=== PATIENT | male | born 1960 | race Caucasian/White ===

== ENCOUNTER → 2020-07-13 11:40 | Outpatient (BNVA) | payer MEDICARE, OTHER, SELFPAY | PROVIDERS: Family Provider Family Medicine; PCP Family Medicine; Visit Provider Internal Medicine Cardiovascular Disease | DX: I10 Essential (primary) hypertension (principal); I25.10 Atherosclerotic heart disease of native coronary artery without angina pectoris; I25.5 Ischemic cardiomyopathy; Z95.810 Presence of automatic (implantable) cardiac defibrillator | CPT/HCPCS: 80048; 83880 ==

== ENCOUNTER 2020-11-01 12:26 | Outpatient (CLI) | payer MEDICARE, OTHER, SELFPAY ==
--- NOTE | 2020-11-01 12:45 | USCV_ITS ---
Sidney Lu Jr Age: 59 Gender: M : 1960 Exam Date: 11/01/2020 12:46 Ordering Phys: Rosalia Alcaraz MD ([email or web address]) Technologist: Merari Kilgore Exam Location: [facility] [place] Indication: POST FL. BP: / HR: 56 Rhythm: Sinus Technical Quality: Adequate MEASUREMENTS (Male / Female) Normal Values 2D ECHO LV Diastolic Diameter PLAX 7.1 cm 4.2 - 5.9 / 3.9 - 5.3 cm LV Systolic Diameter PLAX 5.4 cm IVS Diastolic Thickness 1.5 cm 0.6 - 1.0 / 0.6 - 0.9 cm IVS Systolic Thickness 1.7 cm LVPW Diastolic Thickness 1.6 cm 0.6 - 1.0 / 0.6 - 0.9 cm LVPW Systolic Thickness 1.9 cm LVOT Diameter 2.1 cm LV Ejection Fraction 2D Teich 45.9 % LV Ejection Fraction MOD 2C 36.9 % LV Ejection Fraction 2C AL 36.9 % LA Diameter 4.3 cm LA Width 3.1 cm LA Height 4.8 cm RA Width 4.0 cm RA Height 3.6 cm Aorta at Sinotubular Diameter 3.6 cm M-MODE LV Diastolic Diameter MM 8.4 cm 4.2 - 5.9 / 3.9 - 5.3 cm LV Systolic Diameter MM 7.8 cm LV Ejection Fraction MM Teich 14.3 % IVS Diastolic Thickness MM 1.0 cm 0.6 - 1.0 / 0.6 - 0.9 cm IVS Systolic Thickness MM 1.1 cm LVPW Diastolic Thickness MM 1.8 cm 0.6 - 1.0 / 0.6 - 0.9 cm LVPW Systolic Thickness MM 2.0 cm RV Diastolic Diameter MM 0.7 cm Aortic Annulus Diameter 3.8 cm LA Ao Ratio MM 1.3 DOPPLER AV Peak Velocity 110.0 cm/s LVOT Peak Velocity 49.0 cm/s AV Area Cont Eq vti 1.5 cm squared AV Area Cont Eq pk 1.5 cm squared MV Area PHT 6.9 cm squared Mitral E to A Ratio 0.6 MV E' Velocity 39.5 cm/s Mitral E to MV E' Ratio 12.4 Mitral E to LV E' Lateral Ratio 10.7 Mitral E to LV E' Septal Ratio 15.0 TR Peak Velocity 120.1 cm/s TR Peak Gradient 5.8 mmHg TR Mean Velocity 101.0 cm/s TR Mean Gradient 4.3 mmHg TR Velocity Time Integral 42.9 cm TV Peak E Velocity 50.0 cm/s PV Peak Velocity 68.0 cm/s RV Acceleration Time 0.1 s RV Ejection Time 0.4 s RV AcT/ET 0.3 FINDINGS Left Ventricle Moderately dilated LV cavity. Severe diffuse hypokinesia of the septum, anteroseptum, inferior wall and the LV apex. Ejection fraction around 15-20 % Right Ventricle The right ventricle is normal in size and function. Right Atrium The right atrium is normal in size. Left Atrium Mildly increased left atrial size. Mitral Valve Mild mitral valve regurgitation. Aortic Valve Trace aortic valve regurgitation. Tricuspid Valve No gross abnormalities noted Pulmonic Valve No gross abnormalities noted Pericardium No pericardial effusion. Aorta Normal ascending aorta dimension. CONCLUSIONS Moderately dilated LV cavity. Multiple wall motion normalities with severely depressed left ventricular ejection fraction of 15 to 20%. Mildly increased left atrial size. Mild mitral valve regurgitation. Trace aortic valve regurgitation. There is no pericardial effusion. There are no intracardiac masses. Compared to the study from 07/28/2019, there may not be a significant change Dr Rosalia Alcaraz MD [facility] (Electronically Signed) Final Date: 02 November 2020 09:32 S
== END 2020-11-01 12:27 | disposition home or self-care (01) ==
LOC: US 12:27
PROVIDERS: PCP Family Medicine; Visit Provider Internal Medicine Cardiovascular Disease
DX: R07.89 Other chest pain (principal); I25.2 Old myocardial infarction; I08.0 Rheumatic disorders of both mitral and aortic valves
CPT/HCPCS: 93306

== ENCOUNTER → 2021-08-14 14:58 | Outpatient (BNVA) | payer MEDICARE, OTHER, SELFPAY | PROVIDERS: PCP Family Medicine; Visit Provider Internal Medicine Cardiovascular Disease | DX: R07.89 Other chest pain (principal); I25.5 Ischemic cardiomyopathy; R06.02 Shortness of breath; I50.33 Acute on chronic diastolic (congestive) heart failure; Z95.810 Presence of automatic (implantable) cardiac defibrillator; I25.10 Atherosclerotic heart disease of native coronary artery without angina pectoris; I11.0 Hypertensive heart disease with heart failure; R22.2 Localized swelling, mass and lump, trunk; Z87.891 Personal history of nicotine dependence | CPT/HCPCS: 80048; 83880 ==

== ENCOUNTER → 2021-09-28 11:45 | Outpatient (BNVA) | payer MEDICARE, OTHER, SELFPAY | PROVIDERS: PCP Family Medicine; Referring Provider Family Medicine; Visit Provider Internal Medicine Critical Care Medicine | DX: R91.1 Solitary pulmonary nodule (principal); Z20.822 Contact with and (suspected) exposure to COVID-19 | CPT/HCPCS: 87635 ==

== ENCOUNTER 2021-11-02 09:47 | Outpatient (CLI) | payer MEDICARE, OTHER, SELFPAY ==
--- NOTE | 2021-11-02 11:00 | US_ITS ---
WS: [id number] ULTRASOUND GUIDED BIOPSY LEFT SUPRACLAVICULAR LYMPH NODE. HISTORY: U/S guided FNA of Left Supraclavicular Lymph Node Procedure, risks, and complications are explained to the patient. Consent was obtained. Skin is clean sed with ChloraPrep and anesthetized with 1% buffered lidocaine. There are numerous abnormal lymph nodes in the LEFT supraclavicular location. Abnormal lymph node wit h loss of the normal fatty hilum and rounded configuration in the LEFT supraclavicular area will be t argeted. This lymph node was positive on recent PET/CT. 5 core biopsies are performed with a 20-gauge Temno needle. Specimens are placed and normal saline as requested by pathology. No complications were encountered during the examination. Patient will be ob served for 15 minutes postprocedure. Specimen was delivered to pathology. US/US biopsy lymph node [id number] IMPRESSION: Uncomplicated core biopsy abnormal LEFT supraclavicular lymph node. Multiple co re biopsies were obtained.
[2021-11-13 09:06] LABS: PD-L1 (Clone 22C3) by IHC BBPL See Report
== END 2021-11-02 09:48 | disposition home or self-care (01) ==
LOC: RAD 09:51
PROVIDERS: PCP Family Medicine; Visit Provider Internal Medicine Critical Care Medicine
DX: R59.0 Localized enlarged lymph nodes (principal); R91.1 Solitary pulmonary nodule; C34.92 Malignant neoplasm of unspecified part of left bronchus or lung
CPT/HCPCS: 38505; 76942; 88305; 88342

== ENCOUNTER 2021-11-09 12:04 | Outpatient (CLI) | payer MEDICARE, OTHER, SELFPAY ==
--- NOTE | 2021-11-09 17:13 | ONC CON_ITS ---
Dr. Yusuf New Patient Note Patient: Sidney Lu Jr Unit #: [id number]: 1960 Dicatated By: Zohreh Yusuf M.D.Date of Visit: Nov 09, 2021 Onc MED New Patient/Consult Referring Physician: Satish Wakefield History of Present Illness: Mr. Sidney Lu, is a 61-year-old gentleman with bilateral neck fullness, as per patient about 4 months ago he felt some fullness in his left neck and was evaluated by PMD, chest x-ray was done, which showed pulmonary nodules he was given a course of antibiotic without much help subsequently he underwent CT scan of chest in August 2021 which showed spiculated pulmonary nodule measuring 2 x 1.7 cm in the right apical area. Also found to have central necrotic pretracheal lymph node measuring 4.6 x 4.2 cm and also had right hilar, subcarinal, prevascular lymphadenopathy. Subsequently underwent CT PET scan on September 30, 2021 which showed right apical solid nodule measuring 2.2 x 1.9 cm with SUV of 8 and no additional pulmonary nodules seen. Right hilar mass invading mediastinum measuring 6.9 x 4.2 cm SUV of 10.5. Extensive other malignant mediastinal lymph nodes are present in the prevascular, right and left pretracheal, superior mediastinal and subcarinal territories. Index subcarinal lymph node measuring 4.6 x 2.5 cm with SUV of 10.6. Outside thorax, FDG positive nodes are present in the bilateral cervical level 4, supraclavicular, infraclavicular/retropectoral and left posterior triangle level 5 territory. Index left supraclavicular lymph node mild 1.8 x 2.3 cm with SUV of 11.1. Unifocal osseous metastatic disease is present in left sacral area with SUV 5.1. Patient has history of coronary artery disease status post heart attack, ischemic cardiomyopathy and now has AICD, as per patient his ejection fraction is around 15% and Dr. Alcaraz is following him. Because of cardiac condition, as per patient bronchoscopy was not considered, patient was sent for CT-guided FNA of left supraclavicular lymph node which was done on November 02, 2021 and the prelim report shows metastatic carcinoma, favor non-small cell carcinoma immunohistochemistry pending Patient has history of smoking, 2 packs/day for 30 years before quitting in 2012. Consume alcohol occasionally. Patient denies any headaches, blurred vision or double vision, denies any dysphagia but for the last month or so he cannot live flat on his back because of shortness of breath and also complaining of right shoulder pain, patient has history of left shoulder bursitis which was treated with hydrocortisone injection. Patient denies any trauma to right shoulder or upper body. Denies any numbness or weakness in the right arm or hand. Denies any hemoptysis or hematemesis, denies any weight loss, denies any night sweats denies any recurrent fever. Denies any abdominal pain, denies any jaundice. Denies any melena or hematochezia. Past Medical History: Mr. Tabitha Cutler's medical history consists of cardiomyopathy, coronary artery disease, high degree atrioventricular block, and hypertension. Past Surgical History: Mr. Tabitha Cutler's surgical/procedural history consists of automatic cardioverter/defibrillator, cardiac catheter, orchiectomy, shoulder surgery, tonsillectomy, Covid vaccine #2 Moderna in 2020, and Covid vaccine #1 Moderna in 2020. Medications: Aspirin 1 Tablet (of 81 mg) Tablet, enteric coated Oral daily, Carvedilol 1 Tablet (of 12.5 mg) Oral b.i.d., Ezetimibe 1 Tablet (of 10 mg) Oral daily, Famotidine 1 Tablet (of 20 mg) Oral b.i.d., fish oil 1 Capsule Oral daily, Folic Acid 1 Tablet (of 400 mcg) Oral b.i.d., Furosemide 1 Tablet (of 20 mg) Oral every am, Multi Vitamin 1 Tablet Oral daily, oxyCODONE-Acetaminophen 1 Tablet (of 7.5-325 mg) Oral q 8 hours PRN, Potassium Chloride ER 1 Capsule (of 10 meq) Capsule, controlled release Oral daily, Sacubitril-Valsartan 1 Tablet (of 97-103 mg) Oral b.i.d., Simvastatin 1 Tablet (of 40 mg) Oral daily, Spironolactone 1 Tablet (of 25 mg) Oral daily, TEGretol 1 Tablet (of 200 mg) Oral b.i.d. Allergies: No Known Allergies. Social History: Mr. Tabitha Cutler is . Mr. Tabitha Cutler quit smoking 8 years ago but had smoked 2.0 packs/day for 30 years. He drinks occasionally. Family History: There is no documented family history. Review Of Symptoms: Review of Systems is not available for this patient. Vital Signs: Performed on Nov 09, 2021 12:55: 9, 8, 29.70, 2.12 sq.m, 70 in, 95 % (LOW), 93 /min, 18 /min, 115/75 mm(hg), 97.8 F (LOW), and 207.0 lbs (HIGH). Performance Status: 0 - Fully active, able to carry on all predisease activities without restrictions. (ECOG) Physical Examination: ENMT - No mouth sores, no thrush, no jaundice, Bilateral supraclavicular/cervical lymphadenopathy, Respiratory - Lungs are clear to auscultation, Cardiovascular - Regular rate and rhythm of heart, Abdomen - Soft, bowel sounds present, Extremities - No visible edema, no right shoulder swelling or overlying skin changes, no focal tenderness. Lab/Imaging: Most recent lab results are not available for this patient. 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 Oliveira, as patient's PET scan has shown extensive cervical lymphadenopathy, supraclavicular lymphadenopathy, it is beyond conventional radiation field so upfront systemic therapy is under consideration, , Other concern is left sacral lesion, which could be solitary osseous metastatic disease, will consider CT-guided biopsy once final pathology report is available and if it confirm adenosquamous histology,We will check PD-L1 status, As an mixed histology, reliability of molecular profiling will be questionable . Because of poor ejection fraction, not many chemotherapy options are available but if his PD-L1 status negative, may consider weekly vinorelbine. In the meantime we will also request for Port-A-Cath placement. Patient return to clinic in 1 week with CBC CMP and hopefully will have final pathology report available at that time. Signed By: Zohreh Yusuf M.D. <<Signature on File>>
== END 2021-11-09 12:05 | disposition home or self-care (01) ==
PROVIDERS: PCP Family Medicine; Visit Provider Internal Medicine Hematology & Oncology
DX: C34.90 Malignant neoplasm of unspecified part of unspecified bronchus or lung (principal); I25.5 Ischemic cardiomyopathy; J44.9 Chronic obstructive pulmonary disease, unspecified; R91.1 Solitary pulmonary nodule; R07.89 Other chest pain; Z95.810 Presence of automatic (implantable) cardiac defibrillator; I42.9 Cardiomyopathy, unspecified; I25.10 Atherosclerotic heart disease of native coronary artery without angina pectoris; I10 Essential (primary) hypertension; Z87.891 Personal history of nicotine dependence
CPT/HCPCS: 99204

== ENCOUNTER 2021-11-16 06:37 | Outpatient (CLI) | payer MEDICARE, OTHER, SELFPAY ==
[2021-11-16 09:03] LABS: Basophils % 0.7 %; Eosinophils # 0.2 10^3/uL (0.0-0.8); Eosinophils % 2.8 %; Hemoglobin 14.1 g/dL (11.7-16.6); Lymphocytes # 0.7 10^3/uL (0.8-4.8); Mean Corpuscular Volume 90.3 fl (80-94); Mean Platelet Volume 10.2 fL (7.4-10.4); Monocytes # 0.6 10^3/uL (0.2-0.9); Monocytes % 9.7 %; Neutrophils # 4.54 10^3/uL (1.8-7.7); Neutrophils % 75.5 %; Nucleated Red Blood Cells % 0 %; Platelet Count 329 10^3/cmm (130-400); Red Blood Count 4.87 10^6/uL (4.1-5.3); Red Cell Distribution Width 13.1 % (12.1-15.1)
[2021-11-16 09:23] LABS: Alanine Aminotransferase 20 U/L (0-41); Albumin Level 4.3 g/dL (3.5-5.2); Alkaline Phosphatase 88 IU/L (40-130); Blood Urea Nitrogen 17 mg/dL (8-23); Calcium 9.3 mg/dL (8.5-10.5); Carbon Dioxide 22 mmol/L (22-29); Chloride 100 mmol/L (98-107); Globulin 2.8 g/dL (1.3-4.6); Glomerular Filtration Rate 97.6 mL/min (90-130); Glucose 108 mg/dL (65-115); Osmolality Calculated 282 mOsm/kg (285-295); Sodium 135 mmol/L (136-145); Total Bilirubin 0.3 mg/dL (0.15-1.2); Total Protein 7.1 g/dL (6.6-8.7)
[2021-11-16 09:29] LABS: Anion Gap 17.4 (5-19); Aspartate Amino Transferase 20 U/L (0-40); Potassium 4.4 mmol/L (3.5-5.1)
--- NOTE | 2021-11-16 15:42 | ONC FU_ITS ---
Dr. Yusuf follow up note Patient: Sidney Lu Jr Unit #: [id number]: 1960 Dicatated By: Zohreh Yusuf M.D.Date of Visit:Nov 16, 2021 Onc Med Follow-up/Prog Note History of Present Illness: Mr. Sidney Lu, is a 61-year-old gentleman with bilateral neck fullness, as per patient about 4 months ago he felt some fullness in his left neck and was evaluated by PMD, chest x-ray was done, which showed pulmonary nodules he was given a course of antibiotic without much help subsequently he underwent CT scan of chest in August 2021 which showed spiculated pulmonary nodule measuring 2 x 1.7 cm in the right apical area. Also found to have central necrotic pretracheal lymph node measuring 4.6 x 4.2 cm and also had right hilar, subcarinal, prevascular lymphadenopathy. Subsequently underwent CT PET scan on September 30, 2021 which showed right apical solid nodule measuring 2.2 x 1.9 cm with SUV of 8 and no additional pulmonary nodules seen. Right hilar mass invading mediastinum measuring 6.9 x 4.2 cm SUV of 10.5. Extensive other malignant mediastinal lymph nodes are present in the prevascular, right and left pretracheal, superior mediastinal and subcarinal territories. Index subcarinal lymph node measuring 4.6 x 2.5 cm with SUV of 10.6. Outside thorax, FDG positive nodes are present in the bilateral cervical level 4, supraclavicular, infraclavicular/retropectoral and left posterior triangle level 5 territory. Index left supraclavicular lymph node mild 1.8 x 2.3 cm with SUV of 11.1. Unifocal osseous metastatic disease is present in left sacral area with SUV 5.1. Patient has history of coronary artery disease status post heart attack, ischemic cardiomyopathy and now has AICD, as per patient his ejection fraction is around 15% and Dr. Alcaraz is following him. 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 Consume alcohol occasionally. Patient denies any headaches, blurred vision or double vision, denies any dysphagia but for the last month or so he cannot live flat on his back because of shortness of breath and also complaining of right shoulder pain, patient has history of left shoulder bursitis which was treated with hydrocortisone injection. Patient denies any trauma to right shoulder or upper body. Denies any numbness or weakness in the right arm or hand. Denies any hemoptysis or hematemesis, denies any weight loss, denies any night sweats denies any recurrent fever. Denies any abdominal pain, denies any jaundice. Denies any melena or hematochezia. Came for follow-up, denies any specific complaint except chronic dyspnea on exertion due to low ejection fraction, no dysphagia, no choking sensation, no nausea or vomiting, no diarrhea constipation, no headaches blurred vision or double vision, no new bony pains Medications: Aspirin 1 Tablet (of 81 mg) Tablet, enteric coated Oral daily, Carvedilol 1 Tablet (of 12.5 mg) Oral b.i.d., Ezetimibe 1 Tablet (of 10 mg) Oral daily, Famotidine 1 Tablet (of 20 mg) Oral b.i.d., fish oil 1 Capsule Oral daily, Folic Acid 1 Tablet (of 400 mcg) Oral b.i.d., Furosemide 1 Tablet (of 20 mg) Oral every am, Multi Vitamin 1 Tablet Oral daily, oxyCODONE-Acetaminophen 1 Tablet (of 7.5-325 mg) Oral q 8 hours PRN, Potassium Chloride ER 1 Capsule (of 10 meq) Capsule, controlled release Oral daily, Sacubitril-Valsartan 1 Tablet (of 97-103 mg) Oral b.i.d., Simvastatin 1 Tablet (of 40 mg) Oral daily, Spironolactone 1 Tablet (of 25 mg) Oral daily, TEGretol 1 Tablet (of 200 mg) Oral b.i.d. Allergies: No Known Allergies. Review of Systems: Review of Systems is not available for this patient. Vital Signs: Performed on Nov 16, 2021 12:20 Height - 70.00 in Weight - 207.2 lbs (HIGH) BSA - 2.12 sq.m BMI - 29.73 Temperature - 97.9 F (LOW) Pulse - 89 /min Respiration - 20 /min BP - 126/83 mm(hg) O2 Sat - 92 % (LOW) Pain - 8 Fatigue - 8 Performance Status: 0 - Fully active, able to carry on all predisease activities without restrictions. (ECOG) Physical Examination: ENMT - No mouth sores, no thrush, no jaundice, Bilateral cervical/supraclavicular lymphadenopathy, Respiratory - Lungs are clear to auscultation, Cardiovascular - Regular rate and rhythm of heart, Abdomen - Soft, bowel sounds present, Extremities - No visible edema. Lab/Imaging: Most recent lab results are not available for this patient. 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 , At this point, will consider molecular profiling on the tumor, already ordered, also awaiting PD-L1 status, patient is scheduled for Port-A-Cath placement on November 28, 2020, we will also consider left sacral lesion biopsy, if it confirm metastatic disease, will consider monthly biphosphonate to prevent skeletal related complication and as patient has metastatic cervical lymph node per CT PET scan, we will consider treatment with systemic therapy if molecular profiling shows no targetable mutation and PD-L1 shows negative results. But concern is his low ejection fraction,, starting chemotherapy agent may interfere with cardiac function. We will also refer him to intervention radiology for left sacral lesion biopsy At this point, we will also refer him to [facility] for evaluation regarding clinical trial for second opinion. Patient will return to clinic, hopefully by that time will have his molecular profiling results available and if positive, may consider starting him on systemic therapy based on targetable mutation. Signed By: Zohreh Yusuf M.D. <<Signature on File>>
== END 2021-11-16 06:38 | disposition home or self-care (01) ==
LOC: ONCMED 06:39
PROVIDERS: PCP Family Medicine; Visit Provider Internal Medicine Hematology & Oncology
DX: C80.1 Malignant (primary) neoplasm, unspecified (principal); C77.3 Secondary and unspecified malignant neoplasm of axilla and upper limb lymph nodes; I10 Essential (primary) hypertension; I25.2 Old myocardial infarction; Z86.79 Personal history of other diseases of the circulatory system; Z98.890 Other specified postprocedural states; Z79.899 Other long term (current) drug therapy
CPT/HCPCS: 36415; 80053; 85025; 99214

== ENCOUNTER → 2022-01-02 15:40 | Outpatient (BNVA) | payer MEDICARE, OTHER, SELFPAY | PROVIDERS: PCP Family Medicine; Visit Provider Nurse Practitioner Family | DX: I25.5 Ischemic cardiomyopathy (principal); Z87.891 Personal history of nicotine dependence | CPT/HCPCS: 80048; 83880 ==